=== PATIENT | female | born 1935 | race Caucasian/White ===

== ENCOUNTER 2024-08-16 19:34 | Emergency (ER) | payer OTHER ==
[~2024-08-16] VITALS: Ht 167.6 cm; Wt 57.0 kg
[~2024-08-16 19:34] MED LIST: ALEN70TA79 PO; ALPR-340 PO; ALPR-392 PO; AMLO10TA80 PO; ASPI-1497 PO; ASPI-867 PO; ASPI-986 PO; ATOR20TA65 PO; CLOP-31 PO; CLOP75TA33 PO; ERGO1250 PO; FERR-63 PO; FERR324T22 PO; FERR325T6 PO; GABA-290 PO; GABA-529 PO; GABA800T PO; HYDR100T11 PO; HYDR25TA PO; HYDR25TA78 PO; INSU100I24 SQ; LEVO750T21 PO; LORA10CA PO; MECL-299 PO; METF-414 PO; METF-416 PO; METO-396 PO; METO25TA6 PO; MULT-624 PO; OMEP40CA20 PO; SITA100T11 PO; Vit D2 PO
[2024-08-16 19:41] VITALS: O2SAT 98
[2024-08-16 20:50] VITALS: TEMP 37.00296
[2024-08-16] MEDS: SODIUM CHLORIDE 0.9% 1,000 ML IV ONE (20:50)
[2024-08-16 21:21] LABS: CHLORIDE 98 mEq/L (98-107); POTASSIUM 4.8 mEq/L (3.5-5.1); SODIUM 129 mEq/L (136-145)
[2024-08-16 21:22] LABS: CARBON DIOXIDE 18 mEq/L (21-32)
[2024-08-16 21:27] LABS: CREATININE 1.1 mg/dL (0.6-1.0); GLUCOSE 353 mg/dL (70-105); UREA NITROGEN BLOOD 24 mg/dL (9-23)
[2024-08-16 21:29] LABS: ALANINE AMINOTRANSFERASE 12 IU/L (10-49); ASPARTATE AMINOTRANSFERASE 21 IU/L (<34); BILIRUBIN TOTAL 0.4 mg/dL (0.1-1.0); PROTEIN TOTAL 6.4 g/dL (6.0-8.3); TROPONIN I HIGH SENSITIVITY 22 ng/L (3.0-34)
[2024-08-16 21:36] LABS: HEMATOCRIT. 31.6 % (36.0-48.0); HEMOGLOBIN. 9.9 g/dL (12.0-16.0); MEAN CORPUSCULAR HEMOGLOBIN 29.9 pg (28.0-32.0); MEAN CORPUSCULAR HGB CONC 31.3 g/dL (31.0-37.0); MEAN CORPUSCULAR VOLUME 95.5 fL (81.0-99.0); MEAN PLATELET VOLUME 8.7 fl (7.4-10.4); PLATELET 268 x1000/uL (130-400); RED BLOOD CELL COUNT 3.31 mill/uL (4.2-5.4); RED CELL DISTRIBUTION WIDTH 14.2 % (11.6-14.6); WHITE BLOOD COUNT 13.6 x1000/uL (4.5-11.0)
[2024-08-16 21:37] LABS: DIFFERENTIAL COMMENT 1
[2024-08-16 21:41] LABS: INR 0.9; PROTHROMBIN TIME 10.4 sec (9.6-11.0)
[2024-08-16 22:06] LABS: PLATELET ESTIMATE NORMAL
[2024-08-16 22:15] LABS: BILIRUBIN DIRECT < 0.1 mg/dL (<=3.0); ETHANOL BLOOD < 10 mg/dL (<10)
[2024-08-16 22:27] LABS: BETA HYDROXYBUTYRATE 0.3 mMol/L (0.0-0.3)
[2024-08-16] MEDS ORDERED: IOHEXOL-350 100 ML BOTTLE ONE (23:30)
[2024-08-17] MEDS ORDERED: ASPIRIN 81MG TABLET PO ONE
[2024-08-17 00:18] VITALS: BP 154/52; PULSE 88; RESP 13; O2SAT 96
== END 2024-08-17 00:25 | disposition short-term general hospital (02) ==
LOC: ER 19:34 → MERGE 19:34 → ER 08-17 00:25
DX: I63.9 Cerebral infarction, unspecified (principal); D64.9 Anemia, unspecified; E11.65 Type 2 diabetes mellitus with hyperglycemia; E78.00 Pure hypercholesterolemia, unspecified; I10 Essential (primary) hypertension; Z79.899 Other long term (current) drug therapy; Z98.890 Other specified postprocedural states
CPT/HCPCS: 80076; 80048; 82010; 80320; 85025; 85610; 84484; 36415; 71045; 70496; 70498; 70450; 93005; 96360; 96361; 99285; Q9967; J7030; Z7610; G0480